=== PATIENT | female | born 1960 | race Caucasian/White ===

== ENCOUNTER 2018-08-22 06:10 | Day surgery (SDC) | payer BC ==
[~2018-08-22 06:10] MED LIST: Clindamycin Phosphate in D5W 900 MG in Premix Bag 1 BAG IV ONE
[2018-08-22] MEDS ORDERED: Clindamycin Phosphate 900 MG in Sodium Chloride 0.9% 100 ML IV ONE (06:15)
[2018-08-22] MEDS ORDERED: Bupivacaine 0.25% 30 ML SDV ONE (06:45)
--- NOTE | 2018-08-22 06:47 | PCM.PREANE ---
Preanesthetic Assessment - Anesthesia/Transfusion/Family Hx Anesthesia History: Prior Anesthesia Without Reaction Family History of Anesthesia Reaction: No - Review of Systems General: No Symptoms Pulmonary: No Symptoms (Smoker less than .25 pack per day. ) Cardiovascular: No Symptoms Gastrointestinal: No Symptoms Neurological: No Symptoms Other: Reports: None - Physical Assessment NPO Status Date: 08/21/18 NPO Status Time: 21:00 O2 Sat by Pulse Oximetry: 97 Respiratory Rate: 16 Vital Signs: Last Vital Signs Temp 37.2 C 08/22/18 06:20 Pulse 58 L 08/22/18 06:20 Resp 16 08/22/18 06:20 BP 113/68 08/22/18 06:20 Pulse Ox 97 08/22/18 06:20 Weight: 58.967 kg ASA Class: 2 Mental Status: Alert & Oriented x3 Airway Class: Mallampati = 1 Dentition: Reports: Dentures, Partial Thyro-Mental Finger Breadths: 2 Mouth Opening Finger Breadths: 3 ROM/Head Extension: Full Lungs: Clear to Auscultation, Normal Respiratory Effort Cardiovascular: Regular Rate, Regular Rhythm - Lab Values: Laboratory Last Values MRSA (PCR) Negative 08/14/18 09:35 - Allergies Allergies/Adverse Reactions: Allergies Allergy/AdvReac Type Severity Reaction Status Date / Time Penicillins Allergy Hives Verified 08/21/18 13:45 - Acknowledgements Anesthesia Type Planned: General Anesthesia Pt an Appropriate Candidate for the Planned Anesthesia: Yes Alternatives and Risks of Anesthesia Discussed w Pt/Guardian: Yes Pt/Guardian Understands and Agrees with Anesthesia Plan: Yes PreAnesthesia Questionnaire HEENT History: Reports: Impaired Vision, Other (See Below) Other HEENT History: wears glasses, has dentures Cardiovascular History: Reports: High Cholesterol Respiratory History: Reports: None Genitourinary History: Reports: None TECHNICAL PLANNER History: Reports: None Musculoskeletal History: Reports: Other (See Below) Other Musculoskeletal History: right ulnar nerve entrapment Neurological History: Reports: None Psychiatric History: Reports: None Endocrine/Metabolic History: Reports: None Hematologic History: Reports: None Immunologic History: Reports: None Oncologic (Cancer) History: Reports: None Dermatologic History: Reports: None - Past Surgical History Head Surgeries/Procedures: Reports: None HEENT Surgical History: Reports: Tonsillectomy Cardiovascular Surgical History: Reports: None Respiratory Surgical History: Reports: None GI Surgical History: Reports: Colonoscopy, EGD Female Surgical History: Reports: Section, Tubal Ligation Male Surgical History: Reports: None Endocrine Surgical History: Reports: None Neurological Surgical History: Reports: None Oncologic Surgical History: Reports: None Dermatological Surgical History: Reports: None - SUBSTANCE USE Smoking Status *Q: Current Every Day Smoker Recreational Drug Use History: No - HOME MEDS Home Medications: Home Meds Gabapentin [Neurontin] 300 mg PO BEDTIME 08/21/18 [History] atorvaSTATin Calcium [Lipitor] 20 mg PO BEDTIME 08/21/18 [History] - CURRENT (IN HOUSE) MEDS Current Meds: Current Medications Lactated Ringer's (Ringers, Lactated) 1,000 mls @ 125 mls/hr IV ASDIRECTED MORRIS Stop: 08/22/18 23:00 Lidocaine/Sodium Bicarbonate (Buffered Lidocaine 1% In Ns 8.4%) 0.25 ml IDERM ONETIME PRN PRN Reason: Prior to IV Start Stop: 08/22/18 18:00 Sodium Chloride (Saline Flush) 10 ml FLUSH ASDIRECTED PRN PRN Reason: Keep Vein Open Stop: 08/22/18 18:00 Discontinued Medications Clindamycin Phosphate 900 mg/ (Premix) 50 mls @ 100 mls/hr IV ONETIME ONE Stop: 08/22/18 06:29
[2018-08-22] MEDS ORDERED: Propofol 200 MG/20 ML SDV ONE (06:50)
[2018-08-22] MEDS ORDERED: Ondansetron 4 MG/2 ML SDV ONE (06:50)
[2018-08-22] MEDS ORDERED: fentaNYL 100 MCG/2 ML SDV ONE (06:50)
[2018-08-22] MEDS ORDERED: Lactated Ringers 1,000 ML ONE (06:50)
[2018-08-22] MEDS ORDERED: Lidocaine 1% 4 ML ONE (06:51)
[2018-08-22] MEDS ORDERED: Dexamethasone 4 MG/ML 5 ML MDV ONE (06:51)
[2018-08-22] MEDS ORDERED: Ketorolac 30 MG/ML SDV ONE (06:51)
[2018-08-22] MEDS ORDERED: Midazolam 1 MG/ML 2 ML SDV ONE (06:51)
[2018-08-22] MEDS ORDERED: Sodium Chloride 0.9% 10 ML Syringe FLUSH PRN (07:00)
[2018-08-22] MEDS ORDERED: Lactated Ringers 1,000 ML IV SCH (07:00)
[2018-08-22] MEDS ORDERED: Lidocaine 1%/Sod Bicarbonate in NS 8.4% 1 ML Syringe IDERM PRN (07:00)
[2018-08-22] MEDS ORDERED: ePHEDrine/Normal Saline 25 MG/5 ML Syringe ONE ×2 (07:28→07:48)
[2018-08-22] MEDS ORDERED: HYDROmorphone 0.5 MG/0.5 ML Syringe ONE (07:36)
[2018-08-22] MEDS ORDERED: ePHEDrine 50 MG/ML SDV IVPUSH PRN (08:02)
[2018-08-22] MEDS ORDERED: fentaNYL 100 MCG/2 ML SDV IVPUSH PRN (08:02)
[2018-08-22] MEDS ORDERED: Ondansetron 4 MG/2 ML SDV IVPUSH PRN (08:02)
--- NOTE | 2018-08-22 08:38 | PCM.POSTAN ---
POST ANESTHESIA ASSESSMENT - MENTAL STATUS Mental Status: Alert, Oriented - VITAL SIGNS Pulse Rate: 96 SaO2: 96 Resp Rate: 16 Blood Pressure: 79/52 - RESPIRATORY Respiratory Status: Respiratory Rate WNL, Airway Patent, O2 Saturation Stable, Supplemental Oxygen - CARDIOVASCULAR CV Status: Pulse Rate WNL, Low Blood Pressure - GASTROINTESTINAL GI Status: No Symptoms - POST OP HYDRATION Hydration Status: Adequate & Stable
[2018-08-22] MEDS ORDERED: Acetaminophen/HYDROcodone 325-5 MG Tab PO PRN (08:57)
--- NOTE | 2018-08-22 09:47 | PCM48HPAN ---
Post Anesthesia Note - EVALUATION WITHIN 48HRS OF ANESTHETIC Vital Signs in Normal Range: Yes Patient Participated in Evaluation: Yes Respiratory Function Stable: Yes Airway Patent: Yes Cardiovascular Function Stable: Yes Hydration Status Stable: Yes Pain Control Satisfactory: Yes Nausea and Vomiting Control Satisfactory: Yes Mental Status Recovered: Yes
--- NOTE | 2018-08-22 11:27 | PCM.OPNOTE ---
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
--- NOTE | 2018-08-22 11:55 | OR ---
DATE OF OPERATION: 08/22/2018 SURGEON: Aneudy Ponce MD OPERATION PERFORMED: Right ulnar nerve decompression. PREOPERATIVE DIAGNOSIS: Right ulnar nerve neuropathy. POSTOPERATIVE DIAGNOSIS: Right ulnar nerve neuropathy. ANESTHESIA: General LMA with local. ANESTHESIA PROVIDER: Yue Cruz. HANDKERCHIEF MAKER: Kiarra Bassett PA-C. ESTIMATED BLOOD LOSS: Less than 5 mL. COMPLICATION: None. CONDITION: Stable. DESCRIPTION OF PROCEDURE: The patient was identified in the preop holding area. Proper site was marked and identified by surgeon. The patient was taken back to the operating theater, where after adequate anesthesia, the patient's right upper extremity was sterilely prepped and draped in the usual sterile fashion. OR time-out was performed. The patient received clindamycin. At this time, right upper extremity was exsanguinated. The sterile tourniquet was insufflated to 225 mmHg. At this time, a curvilinear incision was made between the epicondyle and the olecranon going to the intermuscular septum of the triceps. Blunt dissection was taken down to the intermuscular septum. The nerve was identified and resection of the intermuscular septum was done proximally until I could feel no tendinous adhesions. At this time, the resection was taken distally and there was noted to be tight tissue through the cubital tunnel. This was then resected all the way down to the forearm fascia. There was noted to be full release of the ulnar nerve at this point, it was freely mobile. There was no subluxation noted with elbow range of motion, so at this time, it was decided that an ulnar nerve transposition did not need to be done. Adequate saline was irrigated through the wound. 2-0 Vicryl was used subcutaneously. Bradley were used for the skin. The patient was placed in a sterile soft dressing and a posterior slab splint and sent to PACU in stable condition. MMODAL /[id number]
== END 2018-08-22 10:08 | disposition home or self-care (01) ==
LOC: JD.SDS 06:10
PROVIDERS: ATTEND Orthopaedic Surgery
DX: G56.21 Lesion of ulnar nerve, right upper limb (principal); E78.00 Pure hypercholesterolemia, unspecified; F17.210 Nicotine dependence, cigarettes, uncomplicated; Z88.0 Allergy status to penicillin; Z98.890 Other specified postprocedural states
CPT/HCPCS: 64718; 87641; 93005; A9270; J1100; J1885; J2001; J2250; J2405; J2704; J3010; J3490; J7050; J7120; J1170